=== PATIENT | male | born 2000 | race Caucasian/White ===

== ENCOUNTER 2024-05-06 12:40 | Emergency (ER) | payer OTHER, SELFPAY ==
[2024-05-06 13:15] VITALS: BP 135/85; PULSE 98; RESP 16; TEMP 36.8; O2SAT 100
--- NOTE | 2024-05-06 13:49 | ED.WOUNDLAC ---
HPI - Wound/Laceration General Chief Complaint: Wound/Laceration Stated Complaint: L ANKLE LACERATION Time Seen by Provider: 05/06/24 13:47 Source: patient and RN notes reviewed Mode of arrival: ambulatory Limitations: no limitations History of Present Illness HPI narrative: Patient presents today requesting a tetanus shot. This afternoon he cut his anterior left lower leg on a nail at home. He is not up-to-date on his tetanus shot. He clean the area with peroxide and dressed with a Band-Aid and Neosporin. Related Data Home Medications ?Medication ?Instructions ?Recorded ?Confirmed ?Last Taken ?Type citalopram 10 mg tablet mg 05/06/24 Unknown History Allergies Allergy/AdvReac Type Severity Reaction Status Date / Time No Known Allergies Allergy Verified 05/06/24 13:15 Review of Systems Review of Systems: CONSTITUTIONAL: Denies body aches, fever, chills, or sweats. EYES: Denies visual changes, redness, or discharge. ENT: Denies rhinorrhea, congestion, sore throat, or otalgia. CARDIOVASCULAR: Denies chest pain, palpitations, or edema. RESPIRATORY: Denies cough or dyspnea. GASTROINTESTINAL: Denies abdominal pain, nausea, vomiting, or diarrhea. GENITOURINARY: Denies dysuria or hematuria. SKIN: Denies rash, itching. + wound to left lower leg MUSCULOSKELETAL: Denies back pain, joint pain, or myalgia. NEUROLOGIC: Denies headache, numbness, tingling, or weakness. PSYCH: Denies depression or anxiety. PMFSH Comments At time of signature, I have reviewed and agree with nursing past medical, surgical, social and family history unless otherwise noted. Please see nursing chart for further information. There is no relevant family history pertinent to the presenting complaint Exam Narrative: GENERAL: Well-appearing, well-nourished, and in no acute distress. HEAD: Normocephalic, atraumatic. EYES: EOMI. No redness or drainage. Conjunctivae normal. ENT: Mucous membranes pink and moist. NECK: Normal AROM. CHEST: No respiratory distress. EXTREMITIES: Normal range of motion. No edema. SKIN: Warm, dry, no rash. Capillary refill normal. Normal skin turgor. Approximately 1.5 cm superficial linear abrasion to the anterior left lower leg. No active bleeding or swelling noted. Full range of motion of the knee and ankle. NEURO: No focal deficits. Alert and oriented x3. Gait steady. PSYCH: Normal affect. No signs of depression or anxiety. Course Course Level of Care: Express Care Visit Vital Signs Vital signs: Vital Signs Temperature 98.3 F 05/06/24 13:15 Pulse Rate 98 05/06/24 13:15 Respiratory Rate 16 05/06/24 13:15 Blood Pressure 135/85 05/06/24 13:15 Pulse Oximetry 100 05/06/24 13:15 Temperature 98.3 F 05/06/24 13:15 Pulse Rate 98 05/06/24 13:15 Respiratory Rate 16 05/06/24 13:15 Blood Pressure 135/85 05/06/24 13:15 Pulse Oximetry 100 05/06/24 13:15 Reviewed MDM - Wound/Laceration MDM Narrative Medical decision making narrative: Tetanus shot administered. Anticipatory guidance given. Differential Diagnosis Differential diagnosis: Likely laceration and abrasion Critical Care Time Critical Care Time Critical Care Time: No Discharge Plan Discharge Clinical Impression: Vaccine for tetanus toxoid Abrasion of anterior left lower leg Qualifiers: Encounter type: initial encounter Qualified Code(s): S80.812A - Abrasion, left lower leg, initial encounter Patient Disposition: Home, Self-Care Condition: Stable Instructions: Tetanus Toxoid (By injection), Abrasion (ED) Additional Instructions: You have been given your tetanus vaccine today. Continue to monitor your abrasion for infection such as redness, swelling, increased pain or drainage, and see your doctor if you note any. Wash with soap and water daily and keep covered until scabbed over. Your blood pressure was elevated above 120/80 today at Urgent Care. This puts you above the threshold for follow up. Please schedule a followup visit with your personal physician as soon as possible, for further evaluation and treatment. Even blood pressure exceeding 120/80 may indicate pre-hypertension. Patient Language: Upper Sorbian Prescriptions: No Action citalopram 10 mg tablet Follow-up/Referrals: UNKNOWN,DOCTOR [Primary Care Provider] - Time of Disposition: 13:52
[2024-05-06] MEDS: TETANUS,DIPHTHERIA,AC PERTUSSIS ADULT (0.5 ML) BOOSTRIX IM (14:02)
== END 2024-05-06 14:20 | disposition home or self-care (01) ==
PROVIDERS: Emergency Provider Nurse Practitioner; Referring Provider Physician Assistant
DX: S80.812A Abrasion, left lower leg, initial encounter (principal); W45.0XXA Nail entering through skin, initial encounter; Z23 Encounter for immunization
CPT/HCPCS: 90471; 90715; 99212; G0463